=== PATIENT | male | born 1955 | race Caucasian/White ===

== ENCOUNTER → 2017-01-26 | Outpatient (CLI) | payer BC ==
[2017-01-26 17:40] LABS: MEAN CORPUSCULAR HEMOGLOBIN 30.8 pg (27.0-33.0); MEAN CORPUSCULAR HGB CONC 33.1 g/dl (32.0-36.5); MEAN CORPUSCULAR VOLUME 93.1 fl (80.0-96.0); RED CELL DISTRIBUTION WIDTH 12.2 % (11.5-14.5); WHITE BLOOD COUNT 5.5 K/mm3 (4.0-10.0)
== END ==
LOC: M WUC 08:57
PROVIDERS: ATTEND Internal Medicine
DX: R73.01 Impaired fasting glucose (principal); E78.2 Mixed hyperlipidemia

== ENCOUNTER → 2020-09-19 | Outpatient (CLI) | payer OTHER | LOC: M WUC 13:15 | PROVIDERS: ATTEND Internal Medicine | DX: R35.1 Nocturia (principal) ==

== ENCOUNTER → 2020-10-02 | Outpatient (CLI) | payer OTHER ==
--- NOTE | 2020-10-03 03:47 | REP ---
INDICATION: PAIN COMPARISON: None. TECHNIQUE: AP, lateral, bilateral oblique views right foot. FINDINGS: Osseous structures, joint spaces, and surrounding soft tissues are essentially age-appropriate with mild degenerative changes noted primarily involving the 1st metatarsophalangeal and interphalangeal joint. No acute or obvious healed injury identified. No periarticular calcifications, erosive changes or inflammatory changes are appreciated.. IMPRESSION: Generalized age-related degenerative changes. No acute fracture or dislocation. <Electronically signed by Rajesh Lynn > 10/03/20 [id number]
== END ==
LOC: M WUC 15:47
PROVIDERS: ATTEND Internal Medicine
DX: M79.671 Pain in right foot (principal)

== ENCOUNTER → 2022-02-18 | Outpatient (REF) | payer OTHER, MEDICARE | LOC: M SFHCDERM 14:20 | PROVIDERS: ATTEND Nurse Practitioner Family | DX: L82.1 Other seborrheic keratosis (principal) ==

== ENCOUNTER 2022-09-19 10:13 | Day surgery (SDC) | payer MEDICARE, OTHER ==
[~2022-09-19] VITALS: Ht 198.1 cm; Wt 120.7 kg
[~2022-09-19 10:13] MED LIST: APPLTAB3 PO; BEET PO; NS 1,000 ML IV ONE; VITMTA PO
[2022-09-19] MEDS ORDERED: propofoL 200 MG/20 ML VIAL As Ordered ONE ×2 (11:26→12:04)
[2022-09-19] MEDS ORDERED: LIDOCAINE 2% 100MG/5ML SDV (FOR ANES.) As Ordered ONE (11:27)
[2022-09-19 12:35] VITALS: BP 133/67
== END 2022-09-19 12:44 | disposition home or self-care (01) ==
LOC: M OPP 10:13
PROVIDERS: ATTEND Surgery
DX: Z12.11 Encounter for screening for malignant neoplasm of colon (principal); K57.30 Diverticulosis of large intestine without perforation or abscess without bleeding; Z87.891 Personal history of nicotine dependence

== ENCOUNTER → 2023-01-22 | Outpatient (CLI) | payer MEDICARE ==
[~2023-01-22] MED LIST changes: -NS 1,000 ML IV ONE
[2023-01-22 14:27] LABS: ALBUMIN 3.9 G/DL (3.2-5.2); ALKALINE PHOSPHATASE 69 U/L (46-116); ALT/SGPT 20 U/L (7.0-40); AST/SGOT 13 U/L (<34); BILIRUBIN,TOTAL 0.9 MG/DL (0.3-1.2); BLOOD UREA NITROGEN 14 MG/DL (9-23); CALCIUM LEVEL 9.1 MG/DL (8.3-10.6); CARBON DIOXIDE LEVEL 28 MMOL/L (20-31); CHLORIDE LEVEL 108 MMOL/L (98-107); CHOLESTEROL LEVEL 188 MG/DL (<200); CHOLESTEROL RISK RATIO 4.49 (<5); CREATININE FOR GFR 0.89 MG/DL (0.70-1.30); GLOMERULAR FILTRATION RATE > 60.0 (>49); GLUCOSE, FASTING 104 MG/DL (74-106); HDL CHOLESTEROL 41.8 MG/DL (>40); LDL CHOLESTEROL 100.8 MG/DL (<100); NON-HDL-C 146.2 MG/DL; POTASSIUM SERUM 4.3 MMOL/L (3.5-5.1); SODIUM LEVEL 141 MMOL/L (136-145); TOTAL PROTEIN 6.6 G/DL (5.7-8.2); TRIGLYCERIDES LEVEL 227 MG/DL (<150)
== END ==
LOC: M WUC 09:49
PROVIDERS: ATTEND Internal Medicine
DX: E78.2 Mixed hyperlipidemia (principal)

== ENCOUNTER → 2024-02-27 | Outpatient (CLI) | payer MEDICARE | LOC: M WUC 11:07 | PROVIDERS: ATTEND Nurse Practitioner Family | DX: R97.20 Elevated prostate specific antigen [PSA] (principal) ==

== ENCOUNTER → 2024-03-23 | Outpatient (REF) | payer MEDICARE | LOC: M SMT 10:19 | PROVIDERS: ATTEND Urology | DX: R97.20 Elevated prostate specific antigen [PSA] (principal); R39.89 Other symptoms and signs involving the genitourinary system; C61 Malignant neoplasm of prostate ==

== ENCOUNTER → 2024-04-01 | Outpatient (REF) | payer MEDICARE ==
[2024-04-01 14:17] LABS: APPEARANCE, URINE CLOUDY (CLEAR); BACTERIA, URINE AUTO NEGATIVE (NEGATIVE); BILIRUBIN, URINE AUTO NEGATIVE (NEGATIVE); BLOOD, URINE BLOOD 2+ (NEGATIVE); COLOR, URINE AMBER (YELLOW); GLUCOSE, URINE (UA) AUTO NEGATIVE (NEGATIVE); KETONE, URINE AUTO NEGATIVE (NEGATIVE); LEUKOCYTE ESTERASE, URINE AUTO NEGATIVE (NEGATIVE); MUCUS, URINE SMALL (NEGATIVE); NITRITE, URINE AUTO NEGATIVE (NEGATIVE); PROTEIN, URINE AUTO NEGATIVE (NEGATIVE); RBC, URINE AUTO 4 /HPF (0-3); SPECIFIC GRAVITY URINE AUTO 1.023 (1.002-1.035); SQUAMOUS EPITHELIAL CELL UR AU 0 /HPF (0-6); WBC, URINE AUTO 8 /HPF (0-3)
== END ==
LOC: M SMT 13:31
PROVIDERS: ATTEND Physician Assistant
DX: Z91.89 Other specified personal risk factors, not elsewhere classified (principal)

== ENCOUNTER → 2024-05-13 | Outpatient (CLI) | payer MEDICARE ==
[~2024-05-13] MED LIST changes: +NAPR-832 PO; +TAMS1CAP17 PO; +THERTAB52 PO
[2024-05-13 12:10] LABS: BLOOD UREA NITROGEN 16 MG/DL (9-23); CALCIUM LEVEL 10.2 MG/DL (8.3-10.6); CARBON DIOXIDE LEVEL 31 MMOL/L (20-31); CHLORIDE LEVEL 105 MMOL/L (98-107); CREATININE FOR GFR 0.98 MG/DL (0.70-1.30); GLOMERULAR FILTRATION RATE > 60.0 (>49); GLUCOSE, FASTING 109 MG/DL (74-106); POTASSIUM SERUM 4.3 MMOL/L (3.5-5.1); SODIUM LEVEL 141 MMOL/L (136-145)
[2024-05-13 12:32] LABS: HEMOGLOBIN 16.1 g/dl (13.5-17.5); MEAN CORPUSCULAR HEMOGLOBIN 30.4 pg (27.0-33.0); MEAN CORPUSCULAR HGB CONC 32.9 g/dl (32.0-36.5); MEAN CORPUSCULAR VOLUME 92.6 fl (80.0-96.0); PLATELET COUNT, AUTOMATED 220 10^3/uL (150-450); RED BLOOD COUNT 5.29 10^6/uL (4.30-6.10); WHITE BLOOD COUNT 6.9 10^3/uL (4.0-10.0)
[2024-05-13 12:43] LABS: INR 0.96; PARTIAL THROMBOPLASTIN TIME 28.5 SECONDS (24.8-34.2); PROTHROMBIN TIME 13.1 SECONDS (12.5-14.5)
== END ==
LOC: M WUC 09:48
PROVIDERS: ATTEND Urology
DX: Z01.818 Encounter for other preprocedural examination (principal); C61 Malignant neoplasm of prostate; Z79.01 Long term (current) use of anticoagulants

== ENCOUNTER → 2024-05-18 | Outpatient (REF) | payer MEDICARE | LOC: M SMT 16:43 | PROVIDERS: ATTEND Urology | DX: Z01.818 Encounter for other preprocedural examination (principal); C61 Malignant neoplasm of prostate; N39.0 Urinary tract infection, site not specified ==

== ENCOUNTER → 2024-06-04 | Outpatient (CLI) | payer MEDICARE | LOC: M ONCR 13:48 | PROVIDERS: ATTEND General Practice | DX: C61 Malignant neoplasm of prostate (principal) ==

== ENCOUNTER → 2024-06-29 | Outpatient (CLI) | payer MEDICARE ==
[~2024-06-29] MED LIST changes: +ATIV1TAB7 PO; +CIPR750T2 PO
[2024-06-29 15:01] VITALS: BP 125/81; TEMP 98.2; O2SAT 100
[2024-06-29] MEDS: LIDOCAINE 2% MDV 20ML VIAL XX ONE (15:14)
[2024-06-29] MEDS: LIDOCAINE VISCOUS 2% SOLN 15ML UDC XX ONE (15:14)
[2024-06-29 15:47] VITALS: BP 133/80; TEMP 98; O2SAT 99
== END ==
LOC: M ONCR 14:46
PROVIDERS: ATTEND General Practice
DX: C61 Malignant neoplasm of prostate (principal)
CPT/HCPCS: 55874; 55876; A4648; C1889

== ENCOUNTER 2024-07-09 07:55 | Outpatient (RCR) | payer MEDICARE | END 2024-07-16 | LOC: M ONCR 07:55 | PROVIDERS: ATTEND General Practice | DX: Z51.0 Encounter for antineoplastic radiation therapy (principal); C61 Malignant neoplasm of prostate ==

== ENCOUNTER → 2024-08-16 | Outpatient (RCR) | payer MEDICARE ==
[~2024-08-16] MED LIST changes: +FLOM0.4C39 PO; +PYRI1TAB5 PO
== END ==
LOC: M ONCR 07-21 12:24
PROVIDERS: ATTEND General Practice
DX: Z51.0 Encounter for antineoplastic radiation therapy (principal); C61 Malignant neoplasm of prostate

== ENCOUNTER 2024-09-02 11:23 | Outpatient (RCR) | payer MEDICARE ==
[~2024-09-02 11:23] MED LIST changes: -FLOM0.4C39 PO; +TAMS-18 PO
== END 2024-09-15 ==
LOC: M ONCR 11:23
PROVIDERS: ATTEND General Practice
DX: Z51.0 Encounter for antineoplastic radiation therapy (principal); C61 Malignant neoplasm of prostate

== ENCOUNTER → 2024-11-22 | Outpatient (CLI) | payer MEDICARE ==
[2024-11-22 13:52] LABS: PROSTATIC SPECIFIC AG MONITOR 3.39 NG/ML (< 4.00)
[2024-11-22 13:57] LABS: TESTOSTERONE 496.0 NG/DL (241-827)
== END ==
LOC: M WUC 10:35
PROVIDERS: ATTEND General Practice
DX: C61 Malignant neoplasm of prostate (principal)

== ENCOUNTER → 2024-11-26 | Outpatient (CLI) | payer MEDICARE | LOC: M ONCR 11:26 | PROVIDERS: ATTEND General Practice | DX: C61 Malignant neoplasm of prostate (principal); Z92.3 Personal history of irradiation ==

== ENCOUNTER → 2025-02-14 | Outpatient (CLI) | payer MEDICARE | LOC: M RAD 14:42 | PROVIDERS: ATTEND Nurse Practitioner Family | DX: D17.0 Benign lipomatous neoplasm of skin and subcutaneous tissue of head, face and neck (principal); M47.812 Spondylosis without myelopathy or radiculopathy, cervical region ==